=== PATIENT | female | born 1965 | race Caucasian/White ===

== ENCOUNTER 2017-05-27 18:41 | Emergency (ER) | payer OTHER ==
[2017-05-27] VITALS (10 sets, daily range): BP systolic 100–154; BP diastolic 50–76; PULSE 127–140; RESP 16–20; TEMP 99–99.2; O2SAT 96–99
[~2017-05-27] VITALS: Ht 160 cm; Wt 73.7 kg
[~2017-05-27 18:41] MED LIST: PREN0.01
[2017-05-27] MEDS ORDERED: IOHEXOL 350 MG/ML 10 ML VIAL (for RAD DIAG) IVCONTRAST ONE (18:42)
[2017-05-27] MEDS ORDERED: SODIUM CHLOR 0.9% 1000 ML INJ 1,000 ML IV SCH (19:45)
[2017-05-27] MEDS ORDERED: SODIUM CHLOR 0.9% 1000 ML INJ 1,000 ML IV ONE ×2 (19:45→20:45)
[2017-05-27] MEDS ORDERED: LEVO150T7 PO (19:46)
--- NOTE | 2017-05-27 19:49 | PD ---
HPI Chief Complaint: GI Complaint Time Seen by Provider: 19:28 Travel History International Travel<30 days: No Contact w/Intl Traveler<30days: No Traveled to known affect area: No History of Present Illness HPI C/O ONSET OF N/V/D SINCE TUESDAY, ALTHOUGH THAT HAS SLOWED DOWN, NOW SHE IS DEVELOPING SOME DIZZINESS SPECIALLY WHEN GETTING UP FROM SITTING POSITION OR FROM BED. PMHX: HYPOTHYROID NKDA PFSH Past Medical History Hx Anticoagulant Therapy: No Cardiovascular Problems: No Chemotherapy: No Cerebrovascular Accident: No Diabetes: No Respiratory: No ?: Not LMP: april 2017 Past Surgical History Hysterectomy: No Social History Tobacco Use: No Allergies-Medications (Allergen,Severity, Reaction): Coded Allergies: No Known Allergies (Verified , 05/27/17) Reported Meds & Prescriptions Reported Meds & Active Scripts Active Zofran Odt (Ondansetron Odt) 4 Mg Tab 4 Mg SL Q8HR PRN Propranolol (Propranolol HCl) 40 Mg Tab 40 Mg PO Q12HR Reported Levothyroxine (Levothyroxine Sodium) 150 Mcg Tab 150 Mcg PO DAILY Review of Systems Except as stated in HPI: all other systems reviewed are Neg Cardiovascular: Positive: Palpitations Gastrointestinal: Positive: Nausea, Vomiting, Diarrhea Physical Exam Narrative GENERAL: SKIN: Warm and dry. HEAD: Atraumatic. Normocephalic. EYES: Pupils equal and round. No scleral icterus. No injection or drainage. ENT: No nasal bleeding or discharge. Mucous membranes pink and moist. NECK: Trachea midline. No JVD. CARDIOVASCULAR: TACHYCARDIC BUT Regular rhythm. RESPIRATORY: No accessory muscle use. Clear to auscultation. Breath sounds equal bilaterally. GASTROINTESTINAL: Abdomen soft, non-tender, nondistended. MUSCULOSKELETAL: Extremities without clubbing, cyanosis, or edema. No obvious deformities. NEUROLOGICAL: Awake and alert. No obvious cranial nerve deficits. Motor grossly within normal limits. Five out of 5 muscle strength in the arms and legs. Normal speech. PSYCHIATRIC: Appropriate mood and affect; insight and judgment normal. Data Data Last Documented VS Orders Orders Complete Blood Count With Diff (05/27/17 19:45) Comprehensive Metabolic Panel (05/27/17 19:45) Lipase (05/27/17 19:45) Lactic Acid (05/27/17 19:45) Urinalysis - C+S If Indicated (05/27/17 19:45) Iv Access Insert/Monitor (05/27/17 19:45) Ecg Monitoring (05/27/17 19:45) Oximetry (05/27/17 19:45) NPO (05/27/17 19:45) Sodium Chlor 0.9% 1000 Ml Inj (Ns 1000 M (05/27/17 19:45) Sodium Chlor 0.9% 1000 Ml Inj (Ns 1000 M (05/27/17 19:45) Sodium Chlor 0.9% 1000 Ml Inj (Ns 1000 M (05/27/17 20:45) Ondansetron Odt (Zofran Odt) (05/27/17 21:45) Ct Pulmonary Angiogram (05/27/17 21:40) Thyroid Stimulating Hormone (05/27/17 21:44) Iohexol 350 Inj (Omnipaque 350 Inj) (05/27/17 18:42) Diltiazem Inj (Cardizem Inj) (05/27/17 23:00) Diltiazem Inj (Cardizem Inj) (05/27/17 23:30) Diltiazem Inj (Cardizem Inj) (05/28/17 00:00) Labs Laboratory Tests Test 05/27/17 19:50 05/27/17 19:55 White Blood Count 8.8 TH/MM3 Red Blood Count 4.63 MIL/MM3 Hemoglobin 13.4 GM/DL Hematocrit 39.6 % Mean Corpuscular Volume 85.5 FL Mean Corpuscular Hemoglobin 29.0 PG Mean Corpuscular Hemoglobin Concent 33.9 % Red Cell Distribution Width 12.3 % Platelet Count 221 TH/MM3 Mean Platelet Volume 8.6 FL Neutrophils (%) (Auto) 67.5 % Lymphocytes (%) (Auto) 18.1 % Monocytes (%) (Auto) 13.4 % Eosinophils (%) (Auto) 0.7 % Basophils (%) (Auto) 0.3 % Neutrophils # (Auto) 5.8 TH/MM3 Lymphocytes # (Auto) 1.6 TH/MM3 Monocytes # (Auto) 1.2 TH/MM3 Eosinophils # (Auto) 0.1 TH/MM3 Basophils # (Auto) 0.0 TH/MM3 CBC Comment DIFF FINAL Differential Comment Urine Color YELLOW Urine Turbidity CLEAR Urine pH 6.0 Urine Specific [place] 1.025 Urine Protein NEG mg/dL Urine Glucose (UA) 250 mg/dL Urine Ketones NEG mg/dL Urine Occult Blood TRACE Urine Nitrite NEG Urine Bilirubin NEG Urine Leukocyte Esterase NEG Urine RBC 0-3 /hpf Urine Squamous Epithelial Cells 0-5 /hpf Microscopic Urinalysis Comment CULT NOT INDICATED Blood Urea Nitrogen 15 MG/DL Creatinine 0.49 MG/DL Random Glucose 104 MG/DL Total Protein 7.1 GM/DL Albumin 3.1 GM/DL Calcium Level 8.7 MG/DL Alkaline Phosphatase 71 U/L Aspartate Amino Transf (AST/SGOT) 44 U/L Alanine Aminotransferase (ALT/SGPT) 55 U/L Total Bilirubin 0.6 MG/DL Sodium Level 140 MEQ/L Potassium Level 3.5 MEQ/L Chloride Level 104 MEQ/L Carbon Dioxide Level 26.1 MEQ/L Anion Gap 10 MEQ/L Estimat Glomerular Filtration Rate 133 ML/MIN Lipase 164 U/L Thyroid Stimulating Hormone 3rd Gen 0.008 uIU/ML Lactic Acid Level 1.5 mmol/L MDM Medical Decision Making Medical Screen Exam Complete: Yes Emergency Medical Condition: Yes Medical Record Reviewed: Yes Differential Diagnosis VIRAL V BACTERIAL GASTROENTERITIS V ELECTROLYTE ABNL V DEHYDRATION Narrative Course PATIENT INITIALLY HYPOTENSIVE SBP 90'S AND TACHY AT 120-130 IN SINUS TACH...DESPITE AGGRESSIVE HYDRATION, PATIENT'S STAYED TACHYCARDIC DESPITE THE FACT THAT SHE WAS NO LONGER HYPOTENSIVE OR FEBRILE....IN LIEU OF UNEXPLAINED TACHYCARDIA WILL ADD TSH AND CT CHEST TO R/O PE V PERICARDIAL EFFUSION V HYPERTHYROID. Critical Care Narrative CRITICAL CARE NOTE: With evaluation of the patient, labs, EKG, receipt of radiologic studies, administration of medications, reevaluation the patient and discussion of the patient with the admitting physicians, the total critical care time was [60] minutes. Time to perform other separately billable procedures was not included in the critical care time. Diagnosis Primary Impression: VIRAL GASTROENTERITIS Additional Impression: TACHYCARDIA DUE TO SYNTHROID Patient Instructions: General Instructions, Tachycardia (ED) Additional Instructions: HOLD TAKING YOUR SYNTHROID FOR NEXT 48 HOURS AFTER THIS TIME WEAR A WRIST DEVICE THAT WILL CHECK YOUR HEART RATE. IF ABOVE 120, TAKE A PROPANOLOL MEDICATION AND CONTINUE TO WITH HOLD SYNTHROID...ONCE YOUR HEART RATE IS AROUND 100 OR LESS THEN START TAKING YOUR SYNTHROID, CONTINUE TO MONITOR YOUR HEART RATE AND IF GOES ABOVE 120 THEN TAKE ANOTHER PROPANOLOL....PLEASE BE ADVISED THAT PROPANOL IS TO BE TAKEN " NEEDED" FOR YOUR HEART RATE ONLY. Scripts Ondansetron Odt (Zofran Odt) 4 Mg Tab 4 MG SL Q8HR Y for Nausea/Vomiting, #20 TAB 0 Refills Prov: Andrew Lebron MD 05/27/17 Propranolol (Propranolol) 40 Mg Tab 40 MG PO Q12HR, #30 TAB 0 Refills Prov: Andrew Lebron MD 05/27/17 Disposition: 01 DISCHARGE HOME Condition: Stable Andrew Lebron MD May 27, 2017 19:49
[2017-05-27 20:02] LABS: AUTOMATED NEUTROPHIL # 5.8 TH/MM3 (1.8-7.7); BASOPHIL % 0.3 % (0.0-2.0); EOSINOPHIL # 0.1 TH/MM3 (0-0.4); EOSINOPHIL % 0.7 % (0.0-4.0); HEMATOCRIT 39.6 % (35.0-46.0); HEMO FLAGS DIFF FINAL; LYMPH % 18.1 % (9.0-44.0); LYMPHOCYTE # 1.6 TH/MM3 (1.0-4.8); MEAN CELL VOLUME 85.5 FL (80.0-100.0); MEAN CORPUSCULAR HGB CONC 33.9 % (32.0-36.0); MONO % 13.4 % (0.0-8.0); NEUT % 67.5 % (16.0-70.0); PLATELET COUNT 221 TH/MM3 (150-450); RED BLOOD COUNT 4.63 MIL/MM3 (4.00-5.30); RED CELL DISTRIBUTION WIDTH 12.3 % (11.6-17.2); WHITE BLOOD COUNT 8.8 TH/MM3 (4.0-11.0)
[2017-05-27 20:09] LABS: BLOOD, URINE TRACE (NEG); GLUCOSE,URINE 250 mg/dL (NEG); KETONE, URINE NEG (NEG); NITRITE,URINE NEG (NEG)
[2017-05-27 20:11] LABS: CHLORIDE 104 MEQ/L (98-107); POTASSIUM 3.5 MEQ/L (3.5-5.1); SODIUM (NA) 140 MEQ/L (136-145)
[2017-05-27 20:13] LABS: URINE COLOR YELLOW (YELLW/STRAW)
[2017-05-27 20:14] LABS: COMMENT (UR) CULT NOT INDICATED; CULTURE IF INDICATED CULT NOT INDICATED; RBC, URINE 0-3 /hpf (0-3); SQUAMOUS EPITHELIAL CELL URINE 0-5 /hpf (0-5)
[2017-05-27 20:16] LABS: ANION GAP 10 MEQ/L (5-15); BICARBONATE 26.1 MEQ/L (21.0-32.0); BLOOD UREA NITROGEN 15 MG/DL (7-18)
[2017-05-27 20:18] LABS: ALT (GPT) 55 U/L (10-53); AST (GOT) 44 U/L (15-37)
[2017-05-27 20:19] LABS: GLOMERULAR FILTRATION RATE 133 ML/MIN (>89)
[2017-05-27 20:20] LABS: TOTAL BILIRUBIN ADULT 0.6 MG/DL (0.2-1.0)
[2017-05-27 20:21] LABS: ALKALINE PHOSPHATASE 71 U/L (45-117)
[2017-05-27] MEDS ORDERED: ONDANSETRON ODT 4 MG TAB PO ONE (21:45)
--- NOTE | 2017-05-27 22:38 | RADRPT ---
EXAM DATE/TIME: 05/27/2017 22:01 [facility] COMPARISON: No previous studies available for comparison. INDICATIONS : Lightheaded, dizziness. Abnormal tachycardia. Rule out PE IV CONTRAST: 74 cc Omnipaque 350 (iohexol) IV RADIATION DOSE: 8.23 CTDIvol (mGy) MEDICAL HISTORY : None SURGICAL HISTORY : None. ENCOUNTER: Initial ACUITY: 2 days PAIN SCALE: 0/10 LOCATION: chest TECHNIQUE: Volumetric scanning of the chest was performed using a pulmonary embolism protocol MIP images were re constructed. Using automated exposure control and adjustment of the mA and/or kV according to patien t size, radiation dose was kept as low as reasonably achievable to obtain optimal diagnostic quality images. DICOM format image data is available electronically for review and comparison. Follow-up recommendations for detected pulmonary nodules are based at a minimum on nodule size and pa tient risk factors according to Fleischner Society Guidelines. FINDINGS: PULMONARY ARTERIES: No filling defects are seen in the pulmonary arteries through the segmental level. LUNGS: There is no consolidation or pneumothorax . No concerning pulmonary nodule is visualized. PLEURAE: There is no pleural thickening or pleural effusion. MEDIASTINUM: There is good visualization of the great vessels of the middle mediastinum. No evidence of mediastin al or hilar adenopathy/mass. MUSCULOSKELETAL: Within normal limits for patient age. MISCELLANEOUS: The visualized upper abdominal organs demonstrate no acute abnormality. CONCLUSION: No pulmonary embolus or other acute cardiopulmonary disease. Cody Elaine MD on May 27, 2017 at 22:36 Board Certified Radiologist. This report was verified electronically.
[2017-05-27] MEDS ORDERED: DILTIAZEM HCL 25 MG/5 ML VIAL IV ONE ×2 (23:00→23:30)
[2017-05-27] MEDS ORDERED: PROP40TA3 PO (23:12)
[2017-05-27] MEDS ORDERED: ZOFR4TAB3 SL (23:23)
[2017-05-28] MEDS ORDERED: DILTIAZEM HCL 25 MG/5 ML VIAL IV ONE
[2017-05-28 00:03] VITALS: BP 116/53; PULSE 132; RESP 17; O2SAT 96
[2017-05-28 00:10] VITALS: BP 111/54; TEMP 98.9
[2017-05-28 00:15] VITALS: PULSE 125
== END 2017-05-28 00:34 | disposition home or self-care (01) ==
LOC: PHED 18:41
DX: A08.4 Viral intestinal infection, unspecified (principal); R00.0 Tachycardia, unspecified; E03.9 Hypothyroidism, unspecified
CPT/HCPCS: 71275; 80053; 81001; 83605; 83690; 84443; 85025; 96361; 96374; 96376; 99291; J7030; Q9967